=== PATIENT | male | born 1990 | race Caucasian/White ===

== ENCOUNTER → 2022-04-08 | Outpatient (CLI) | payer BC | LOC: LAB 08:17 | DX: J02.9 Acute pharyngitis, unspecified (principal); J04.0 Acute laryngitis ==

== ENCOUNTER → 2022-06-17 | Outpatient (CLI) | payer BC | LOC: LAB 08:29 | DX: Z20.822 Contact with and (suspected) exposure to COVID-19 (principal) ==